=== PATIENT | male | born 1980 | race Caucasian/White ===

== ENCOUNTER 2016-06-30 02:47 | Emergency (ER) | payer SELFPAY ==
[~2016-06-30 02:47] MED LIST: FOLVITE-DPS1 MG PO; GABAPENTIN100 MG PO; MAGOX 400400 MG PO; MULTIVITAMINS1 EAC1 PO; PEPCID20 MG PO; VITAMIN B1100 MG PO
--- NOTE | 2016-06-30 06:48 | ER ---
ADMIT: 06/30/2016 RM/LOC: ER [facility] MR#: [id number] 2620 [facility] [address] GUICHO CHEN [address] [place] [address] Emergency Room Report SEX: M AGE: 35 : 1980 DATE: 06/30/2016 The patient is a 35-year-old male, alcoholic with alcoholic liver disease, pancytopenia due to alcoholism presents with dental bleeding after dental cleaning today. Admits to drinking his usual amount of beer and whiskey. Exam remarkable for nontoxic, afebrile, non-jaundice male, no acute distress, obvious gingival bleeding along 29 through 30 teeth and 3 through 5 teeth. Treated with Zofran 8 mg IV push; tranexamic acid 1 g IV piggyback; banana bag with thiamine, folic acid, and multivitamin; as well as magnesium and potassium. Lab remarkable for WBC 3.6, hemoglobin 9.3, platelet count 24,000, lactic 1.4, CRP less than 0.29, potassium 3.5, INR 1.23, AST 128, troponin less than 0.015, EtOH 371. Follow up with Dr. Best as needed. Mateo Pringle MD/ janeth JOB #: [id number] CC: Mateo Pringle MD, Attending Physician Joon Best MD
[2016-11-25] MEDS ORDERED: FOLVITE-DPS1 MG PO (14:59)
[2016-11-25] MEDS ORDERED: CALCIUM CARBON200 MG PO (14:59)
[2016-11-25] MEDS ORDERED: MAG-OX400 MG PO (15:00)
[2016-11-25] MEDS ORDERED: ATIVAN-DPS1 MG PO (15:01)
[2016-11-25] MEDS ORDERED: INDERAL-DPS10 MG PO (15:01)
[2016-11-25] MEDS ORDERED: VITAMIN B1100 MG PO (15:01)
[2016-11-25] MEDS ORDERED: PROTONIX40 MG PO (15:01)
[2016-11-25] MEDS ORDERED: [UNRECOGNIZED DRUG - CODE] PO (15:01)
[2016-11-25] MEDS ORDERED: KLOR-CON M2020 ME1 PO (15:02)
[2017-01-07] MEDS ORDERED: ENULOSE10 GM/15 M PO (18:16)
[2017-01-07] MEDS ORDERED: FEOSOL-DPS325 MG PO (18:16)
[2017-01-07] MEDS ORDERED: NALTREXONE HCL50 MG PO (18:17)
== END 2016-06-30 05:45 | disposition home or self-care (01) ==
LOC: ER 02:47
DX: K70.9 Alcoholic liver disease, unspecified (principal)

== ENCOUNTER 2016-07-21 04:22 | Emergency (ER) | payer SELFPAY ==
--- NOTE | 2016-07-26 18:25 | ER ---
ADMIT: 07/21/2016 RM/LOC: ER [facility] MR#: [id number] [address] [address] GUICHO CHEN [address] [place], [place] [address] Emergency Room Report SEX: M AGE: 35 : 1980 DATE: 07/21/2016 The patient is a 35-year-old male in police custody for trespassing, drunken, disorderly conduct. The patient is well known to this physician and institution, denies any problem other than happily intoxicated, released in police custody. Mateo Pringle MD/ modl JOB #: [id number] CC: Mateo Pringle MD, Attending Physician Sonido Ramirez MD, Family Physician Reji Lara MD
[2016-11-25] MEDS ORDERED: CALCIUM CARBON200 MG PO (14:59)
[2016-11-25] MEDS ORDERED: FOLVITE-DPS1 MG PO (14:59)
[2016-11-25] MEDS ORDERED: MAG-OX400 MG PO (15:00)
[2016-11-25] MEDS ORDERED: INDERAL-DPS10 MG PO (15:01)
[2016-11-25] MEDS ORDERED: ATIVAN-DPS1 MG PO (15:01)
[2016-11-25] MEDS ORDERED: PROTONIX40 MG PO (15:01)
[2016-11-25] MEDS ORDERED: [UNRECOGNIZED DRUG - CODE] PO (15:01)
[2016-11-25] MEDS ORDERED: VITAMIN B1100 MG PO (15:01)
[2016-11-25] MEDS ORDERED: KLOR-CON M2020 ME1 PO (15:02)
[2017-01-07] MEDS ORDERED: ENULOSE10 GM/15 M PO (18:16)
[2017-01-07] MEDS ORDERED: FEOSOL-DPS325 MG PO (18:16)
[2017-01-07] MEDS ORDERED: NALTREXONE HCL50 MG PO (18:17)
== END 2016-07-21 04:30 ==
LOC: ER 04:22
DX: F10.129 Alcohol abuse with intoxication, unspecified (principal)

== ENCOUNTER 2016-07-21 20:50 | Inpatient (IN) | payer SELFPAY ==
[~2016-07-21] VITALS: Ht 152.4 cm; Wt 70.5 kg
--- NOTE | 2016-07-26 17:54 | HP ---
ADMIT: 07/22/2016 RM/LOC: 425 [facility] MR#: [id number] [address] [address] GUICHO CHEN [address] [place], [place] [address] History and Physical SEX: M AGE: 35 : 1980 DATE OF SERVICE: CHIEF COMPLAINT: Abdominal pain and "shakiness" after no alcohol for greater than 24 hours. HISTORY OF PRESENT ILLNESS: Mr. Chen is a 35-year-old, male, who is well-known to our Emergency Department. He has a long history of alcohol abuse with numerous related problems outlined below. He was brought to the emergency room late last night by the police after he had been arrested the day prior for trespassing. He admitted to drinking an amount of alcohol on a daily basis, but is not able to quantify it. Since being in [facility], he had been given some Librium, but still was feeling quite shaky. He complained of headache, some diffuse abdominal pain and then reported to the ER that he has been having rectal bleeding with blood over the last month that seemed worse in the last few days. He has had a history of a significant GI bleed with esophageal varices in the past. In the emergency room, his hemoglobin was 8.2, platelets of 26, white count of 3500 and mild elevation of his liver function studies and mild hypokalemia. He was admitted for further evaluation and treatment with a police hold. PAST MEDICAL HISTORY: Obtained primarily from his old records. He has known alcoholic cirrhosis and portal hypertension. He has had esophageal varices, apparently previously treated. He has a history of cerebral hemorrhage in April 2014, history of splenic laceration with splenic embolization number of years ago, history of abnormal thyroid studies in the past, history of mild coagulopathy and mildly elevated ammonia levels in the past. MEDICATIONS: None. ALLERGIES: NONE. SOCIAL HISTORY: He is unemployed, single. States he does not use tobacco. He has been evaluated at a local drug and alcohol unit several times. Again, he cannot quantify his alcohol intake. FAMILY HISTORY: From old records, reveals his father apparently of alcoholism. He denies any diabetes or hypertension in the family. REVIEW OF SYSTEMS: Aside from his mild headache and abdominal distress, is negative x10 points. PHYSICAL EXAMINATION: GENERAL: He is alert, in no apparent distress, has good reasonable color. SKIN: Warm and dry. VITAL SIGNS: He has a temp of about 99-100 since admission, blood pressures in the 130 systolic range, pulse of about 100. HEENT: Essentially negative, but for poor dentition. NECK: Reasonably supple. No bruits. LUNGS: Clear to auscultation. ADMIT: 07/22/2016 RM/LOC: 425 [facility] MR#: [id number] [address] [address] GUICHO CHEN [address] [place] [address] History and Physical SEX: M AGE: 35 : 1980 CARDIAC: Shows regular without murmur. ABDOMEN: Protuberant, soft. He has mild epigastric tenderness. I do not detect any obvious hepatosplenomegaly. GENITAL/RECTAL: Not done. EXTREMITIES: Lower extremities show no edema. IMPRESSION: 1. Chronic alcoholism with withdrawal symptoms. 2. Alcoholic liver disease. 3. Known portal hypertension with a history of esophageal varices. 4. Pancytopenia (alcoholism and malnutrition). 5. History of cerebral hemorrhage in April 2014. 6. History of splenic laceration-status post splenic embolization. 7. History of abnormal thyroid function studies. 8. History of coagulopathy. 9. History of mildly elevated ammonia levels. 10.Poor dentition. PLAN: He has been admitted on our usual withdrawal pathway. He is begun on a police hold. We will follow him. We will monitor his hemoglobins. We will transfuse him if his hemoglobin drops much less than about 7.5. Further treatment will depend on his response to our initial therapies and his trended studies. Felipe Osman MD/ janeth JOB #: [id number] CC: Felipe Osman, Attending Physician Felipe Osman, Family Physician
--- NOTE | 2016-07-28 08:16 | DS ---
ADMIT: 07/22/2016 RM/LOC: 425 [facility] MR#: [id number] [address] [address] GUICHO CHEN [address] [place] [address] General Discharge Summary SEX: M AGE: 35 : 1980 ADMISSION DATE: 07/22/2016 DISCHARGE DATE: 07/22/2016 FINAL DIAGNOSES: 1. Chronic alcoholism with withdrawal symptoms. 2. Alcoholic liver disease. 3. Known portal hypertension with history of esophageal varices. 4. Pancytopenia secondary to alcoholism and malnutrition. 5. History of cerebral hemorrhage in April 2014. 6. History of splenic laceration - status post splenic embolization. 7. History of abnormal thyroid function studies. 8. History of coagulopathy. 9. History of mildly elevated ammonia levels. 10.Poor dentition. Felipe Osman MD/ janeth JOB #: [id number] CC: Felipe Osman MD, Attending Physician Felipe Osman MD, Family Physician
--- NOTE | 2016-08-01 07:17 | ER ---
ADMIT: 07/22/2016 RM/LOC: 425 [facility] MR#: [id number] [address] [address] GUICHO CHEN [address] [place] [address] Emergency Room Report SEX: M AGE: 35 : 1980 DATE: 07/21/2016 CHIEF COMPLAINT: Abdominal pain and rectal bleeding. HISTORY OF PRESENT ILLNESS: The patient is a 35-year-old male, who is well known to myself in the Emergency Department, who presents from [facility]. The patient has a long history of alcohol abuse and numerous chronic conditions related to his alcohol abuse including esophageal varices, pancytopenia, GI bleeds. He has also had numerous traumas related to his alcohol intoxication. He presents today after he was arrested and booked last night for trespassing. Up till last night, he had been drinking large amounts of alcohol on a daily basis. Since being in [facility], he has of course had no access to alcohol and has been given some Librium but feels like he feels quite shaky. He has some complaints of headache, some diffuse abdominal pain. Additionally, the patient states he has been having rectal bleeding with blood mixed with stool quite frequently over the past month and it seems like it has increased in the past couple of days. He has had history of significant GI bleeds in the past. REVIEW OF SYSTEMS: The patient denies any recent illness but did have reported fever tonight at [facility]. Denies any chest pain or shortness of breath. He is not having any pain with urination, any abnormal bruising or bleeding. PAST MEDICAL HISTORY: Significant for alcohol abuse, pancytopenia, GI bleed, esophageal varices, splenic rupture, intercerebral bleed, cirrhosis. PAST SURGICAL HISTORY: Splenic embolization, 2013. SOCIAL HISTORY: The patient is single and drinks large amounts of alcohol on a daily basis. Denies any illicit drugs. PHYSICAL EXAMINATION: See T-sheet for complete exam. Pertinent positives, he does have some scleral icterus. His abdomen is mildly diffusely tender. He does have some gross blood present on rectal exam. Skin is warm and dry. No abnormal ecchymosis or petechiae. LABORATORY DATA: White count is 3.9, hemoglobin of 8.2, platelets 24. AST is 178. Chemistries are unremarkable other than potassium of 3.6. Urinalysis shows 1+ protein and 1+ ketones. EMERGENCY DEPARTMENT COURSE: I did get an IV started on the patient and he ADMIT: 07/22/2016 RM/LOC: 425 [facility] MR#: [id number] [address] [address] GUICHO CHEN [address] [place] [address] Emergency Room Report SEX: M AGE: 35 : 1980 required three doses of 1 mg Ativan due to his symptoms of feeling jittery and shakes. He did improve after he was given each dose of Ativan. Due to the fact the patient is having some GI bleeding and has a significant likelihood of going into alcohol withdrawal, the [facility] was not comfortable having him under their care this evening. As the patient does not see a regular physician, I had to contact [facility] and Dr. Osman graciously admitted the patient to his service. He is admitted in stable condition at this time with a diagnosis of: 1. Lower GI bleed. 2. Pancytopenia. 3. Alcohol withdrawal. 4. Alcohol abuse. Josué Malhotra MD/ janeth JOB #: [id number] CC: Felipe Osman MD, Attending Physician Felipe Osman MD, Family Physician
[2016-11-25] MEDS ORDERED: FOLVITE-DPS1 MG PO (14:59)
[2016-11-25] MEDS ORDERED: CALCIUM CARBON200 MG PO (14:59)
[2016-11-25] MEDS ORDERED: MAG-OX400 MG PO (15:00)
[2016-11-25] MEDS ORDERED: [UNRECOGNIZED DRUG - CODE] PO (15:01)
[2016-11-25] MEDS ORDERED: PROTONIX40 MG PO (15:01)
[2016-11-25] MEDS ORDERED: INDERAL-DPS10 MG PO (15:01)
[2016-11-25] MEDS ORDERED: VITAMIN B1100 MG PO (15:01)
[2016-11-25] MEDS ORDERED: ATIVAN-DPS1 MG PO (15:01)
[2016-11-25] MEDS ORDERED: KLOR-CON M2020 ME1 PO (15:02)
[2017-01-07] MEDS ORDERED: ENULOSE10 GM/15 M PO (18:16)
[2017-01-07] MEDS ORDERED: FEOSOL-DPS325 MG PO (18:16)
[2017-01-07] MEDS ORDERED: NALTREXONE HCL50 MG PO (18:17)
== END 2016-07-22 12:45 | disposition left against medical advice (07) | DRG 894 ==
LOC: ER 20:50 → 4PCU 07-22 00:23
PROVIDERS: ADMIT Family Medicine
PROC: HZ2ZZZZ Detoxification Services for Substance Abuse Treatment (ICD-10-PCS; principal; 2016-07-22)
DX: F10.231 Alcohol dependence with withdrawal delirium (principal); D61.818 Other pancytopenia; I85.00 Esophageal varices without bleeding; K76.6 Portal hypertension; K92.1 Melena; K70.30 Alcoholic cirrhosis of liver without ascites; F41.9 Anxiety disorder, unspecified; Z81.1 Family history of alcohol abuse and dependence

== ENCOUNTER 2016-07-29 20:48 | Emergency (ER) | payer SELFPAY ==
--- NOTE | 2016-07-30 02:06 | ER ---
ADMIT: 07/29/2016 RM/LOC: ER [facility] MR#: [id number] [address] [address] GUICHO CHEN [address] [place] [address] Emergency Room Report SEX: M AGE: 35 : 1980 DATE: 07/29/2016 HISTORY OF PRESENT ILLNESS: The patient is a 35-year-old male with a history of alcohol abuse and heavy drinking, allegedly came to the ER with chief complaint of alcohol intoxication. The patient denies any trauma. Allegedly, the patient had epigastric pain which was already resolved when I saw him. The patient had no nausea or vomiting and no abdominal pain. The patient admitted to use alcohol and denied any trauma or fall or co-ingestion of other material/medications. The patient denies any drug use. PHYSICAL EXAMINATION: VITAL SIGNS: The patient has stable vitals. GENERAL: At first was drowsy but was arousable, alert and oriented to person, place, time. No obvious signs of trauma. HEENT: Pupils 3 mm, reactive to light bilaterally. No midline tenderness or stepoff in the neck. CHEST: Clear to auscultation. HEART: Normal heart sounds. ABDOMEN: Soft. EXTREMITIES: Nontender with normal range of motion. disposition The patient was observed and was re-examined. The patient became more oriented and more alert and ambulated without difficulty, tolerated p.o., re- examined, did not show any new symptoms. DISPOSITION: The patient is stable for discharge to home with followup with the primary care doctor as needed. Arnie Clements MD/ janeth JOB #: [id number] CC: Arnie Clements MD, Attending Physician
[2016-11-25] MEDS ORDERED: FOLVITE-DPS1 MG PO (14:59)
[2016-11-25] MEDS ORDERED: CALCIUM CARBON200 MG PO (14:59)
[2016-11-25] MEDS ORDERED: MAG-OX400 MG PO (15:00)
[2016-11-25] MEDS ORDERED: PROTONIX40 MG PO (15:01)
[2016-11-25] MEDS ORDERED: [UNRECOGNIZED DRUG - CODE] PO (15:01)
[2016-11-25] MEDS ORDERED: VITAMIN B1100 MG PO (15:01)
[2016-11-25] MEDS ORDERED: INDERAL-DPS10 MG PO (15:01)
[2016-11-25] MEDS ORDERED: ATIVAN-DPS1 MG PO (15:01)
[2016-11-25] MEDS ORDERED: KLOR-CON M2020 ME1 PO (15:02)
[2017-01-07] MEDS ORDERED: ENULOSE10 GM/15 M PO (18:16)
[2017-01-07] MEDS ORDERED: FEOSOL-DPS325 MG PO (18:16)
[2017-01-07] MEDS ORDERED: NALTREXONE HCL50 MG PO (18:17)
== END 2016-07-30 00:35 | disposition home or self-care (01) ==
LOC: ER 20:48
DX: F10.129 Alcohol abuse with intoxication, unspecified (principal); I10 Essential (primary) hypertension

== ENCOUNTER 2016-08-06 01:10 | Emergency (ER) | payer SELFPAY ==
--- NOTE | 2016-08-06 19:24 | ER ---
ADMIT: 08/06/2016 RM/LOC: ER [facility] MR#: [id number] [id number] [place], [place] [address] APRILGUICHO MONTES [address] [place] [address] Emergency Room Report SEX: M AGE: 35 : 1980 DATE: 08/06/2016 HISTORY OF PRESENT ILLNESS: The patient is a 35-year-old male, who is known to the ER with past medical history of EtOH abuse and allegedly GI bleed, came to the ER because of EtOH intoxication. The patient also complains of mild epigastric pain. The patient denies any trauma or fall or loss of consciousness. The patient states he just used beer and did not use any other forms of liquids, which could contain alcohol or similar products. The patient denied any drug abuse or taking any pills or medications. In the ER, the patient was quiet, EtOH smell. PHYSICAL EXAMINATION: GENERAL: In no obvious distress. There are no obvious signs of trauma. EYES: Pupils are 3 mm, reactive to light bilaterally. NEUROLOGICAL: Motor and sensory and cerebellar test and cranial exam are also normal. NECK: Trachea midline. CHEST: Clear bilaterally. HEART: Normal heart sounds. ABDOMEN: Soft abdomen. No signs of trauma. EXTREMITIES: With normal range of motion. The patient received GI cocktail. Abdominal pain resolved. The patient was observed, became more sober, was ambulating without difficulty and had no pain or complaints, tolerated p.o., discharged to home. Arnie Clements MD/ janeth JOB #: [id number] CC: Arnie Clements MD, Attending Physician
[2016-11-25] MEDS ORDERED: FOLVITE-DPS1 MG PO (14:59)
[2016-11-25] MEDS ORDERED: CALCIUM CARBON200 MG PO (14:59)
[2016-11-25] MEDS ORDERED: MAG-OX400 MG PO (15:00)
[2016-11-25] MEDS ORDERED: [UNRECOGNIZED DRUG - CODE] PO (15:01)
[2016-11-25] MEDS ORDERED: VITAMIN B1100 MG PO (15:01)
[2016-11-25] MEDS ORDERED: INDERAL-DPS10 MG PO (15:01)
[2016-11-25] MEDS ORDERED: PROTONIX40 MG PO (15:01)
[2016-11-25] MEDS ORDERED: ATIVAN-DPS1 MG PO (15:01)
[2016-11-25] MEDS ORDERED: KLOR-CON M2020 ME1 PO (15:02)
[2017-01-07] MEDS ORDERED: FEOSOL-DPS325 MG PO (18:16)
[2017-01-07] MEDS ORDERED: ENULOSE10 GM/15 M PO (18:16)
[2017-01-07] MEDS ORDERED: NALTREXONE HCL50 MG PO (18:17)
== END 2016-08-06 04:55 | disposition home or self-care (01) ==
LOC: ER 01:10
DX: F10.129 Alcohol abuse with intoxication, unspecified (principal)

== ENCOUNTER 2016-08-08 00:48 | Emergency (ER) | payer SELFPAY ==
--- NOTE | 2016-08-10 12:46 | ER ---
ADMIT: 08/08/2016 RM/LOC: ER [facility] MR#: [id number] [address] [address] GUICHO CHEN [address] [place] [address] Emergency Room Report SEX: M AGE: 35 : 1980 DATE: 08/08/2016 CHIEF COMPLAINT: Med clearance, alcohol intoxication. HISTORY OF PRESENT ILLNESS: This is a 35-year-old, male, who presents to the department of [facility] for med clearance prior to transport to the [facility]. The patient has been using alcohol tonight. He is unable to quantify how much he has been using. The patient states that he was having problems with his vision and some abdominal pain. Denies any fever, chills, nausea, or vomiting. Denies any issues with his alcohol intoxication. PAST MEDICAL HISTORY: Significant for alcohol abuse as well as CVA, GI bleed, and hepatitis. COURSE IN THE EMERGENCY ROOM: The patient was seen and examined. Vital signs were unable to review as the patient was refusing nursing to obtain any vital sign. However, he is nontoxic. He is jovial. He jokes and laughs in the room with the police. He is in no acute distress. He is alert. No apparent trauma. Pupils are equal and reactive. Extraocular muscles are intact. Pharynx is normal. Airway is intact. He is alert. Mood and affect are normal. Neck is supple. Respiratory, no respiratory distress. Breath sounds are normal. No wheezes or rhonchi. CVS is significant for some tachycardia. No murmurs, gallops, or rubs. Abdomen is soft and nontender. However, he does state that he has generalized tenderness about his entire abdomen. Skin is warm, dry, and intact. Extremities are nontender. He moves upper and lower extremities. No evidence of any pedal edema. IMPRESSION: 1. Alcohol abuse with acute intoxication. 2. History of alcoholic hepatitis. DISPOSITION: The patient was discharged into the care of [place] [employer] for transport to halfway. I have no suggestion for care of this prisoner, and I believe him fit for admission to halfway. MILAGROS Parikh / Arnie Clements MD / modl JOB #: [id number] CC: Arnie Clements MD, Attending Physician
[2016-11-25] MEDS ORDERED: CALCIUM CARBON200 MG PO (14:59)
[2016-11-25] MEDS ORDERED: FOLVITE-DPS1 MG PO (14:59)
[2016-11-25] MEDS ORDERED: MAG-OX400 MG PO (15:00)
[2016-11-25] MEDS ORDERED: ATIVAN-DPS1 MG PO (15:01)
[2016-11-25] MEDS ORDERED: VITAMIN B1100 MG PO (15:01)
[2016-11-25] MEDS ORDERED: PROTONIX40 MG PO (15:01)
[2016-11-25] MEDS ORDERED: [UNRECOGNIZED DRUG - CODE] PO (15:01)
[2016-11-25] MEDS ORDERED: INDERAL-DPS10 MG PO (15:01)
[2016-11-25] MEDS ORDERED: KLOR-CON M2020 ME1 PO (15:02)
[2017-01-07] MEDS ORDERED: FEOSOL-DPS325 MG PO (18:16)
[2017-01-07] MEDS ORDERED: ENULOSE10 GM/15 M PO (18:16)
[2017-01-07] MEDS ORDERED: NALTREXONE HCL50 MG PO (18:17)
== END 2016-08-08 02:30 | disposition home or self-care (01) ==
LOC: ER 00:48
DX: F10.129 Alcohol abuse with intoxication, unspecified (principal); H53.149 Visual discomfort, unspecified; F10.21 Alcohol dependence, in remission; Z09 Encounter for follow-up examination after completed treatment for conditions other than malignant neoplasm; Z86.19 Personal history of other infectious and parasitic diseases

== ENCOUNTER 2017-01-04 16:06 | Inpatient (IN) | payer OTHER ==
[~2017-01-04] VITALS: Ht 152.4 cm; Wt 55.3 kg
[~2017-01-04 16:06] MED LIST changes: +ATIVAN-DPS1 MG PO; +CALCIUM CARBON200 MG PO; +INDERAL-DPS10 MG PO; +KLOR-CON M2020 ME1 PO; +MAG-OX400 MG PO; +PROTONIX40 MG PO; +[UNRECOGNIZED DRUG - CODE] PO
--- NOTE | 2017-01-06 16:10 | HP ---
ADMIT: 01/04/2017 RM/LOC: 312 [facility] MR#: [id number] [address] [address] NAS LYN [address] [place] [address] History and Physical SEX: M AGE: 36 : 1980 DATE OF SERVICE: 01/04/2017 CURRENT TIME: 7:42 p.m. CHIEF COMPLAINT: "Don't feel good." HISTORY OF PRESENT ILLNESS: Nas Lyn is a 36-year-old male who presented to the emergency room at the direction of his [facility]p strategy for hyponatremia. He is well known to our facility, and has extensive medical history most notable for chronic alcohol abuse, cirrhosis with esophageal varices, and a recent esophageal varix bleed, s/p banding, portal hypertension and pancytopenia. He was recently admitted to [facility] from 12/11/2016 to 12/15/2016.At that time, he had an esophageal varix bleed and underwent banding x2 during that hospitalization. He required 2 units of PRBCs. He was discharged from the hospital on 40 mg of Lasix and 100 mg of Aldactone for management of his ascites. He did receive 7 days of treatment for STP prophylaxis. No known hepatic encephalopathy was apparent. He was discharged with lactulose titrated to 3 to 4 bowel movements day. He presented this week for a followup and saw his evp strategy, Dr. Carlos on 01/01/2017 for routine followup where he was noted have a blood alcohol content of 233 and sodium was noted to be 117. He was advised to report to the emergency room for direct admission here in [place], but the patient did not arrive for a follow up until today. On presentation, he is intoxicated with a blood alcohol content 277. He states he "does not feel well." He is unable to provide specifics. Denies nausea or vomiting. No recent melena or hematochezia. No recent hematemesis. Reports compliance of his medications including Lasix and Aldactone. Also continues to take lactulose. Denies abdominal pain. States he is currently drinking approximately 1 to 2 [place] beers daily. States he has significantly cut back the amount of alcohol he drinks but has not been able to quit. States he desires sobriety. PAST MEDICAL HISTORY: 1. Chronic alcohol abuse. 2. Cirrhosis secondary to alcohol abuse. 3. Esophageal varices, s/p banding in November 2016 x2. 4. Chronic ascites. 5. History of cerebral hemorrhage in April 2014. 6. History of splenic laceration, s/p splenic embolization. 7. Abnormal TSH. 8. Pancytopenia secondary to alcohol abuse. 9. Coagulopathy. 10.Poor dentition. MEDICATIONS: 1. Lorazepam 1 mg three times daily as needed. 2. Calcium carbonate 500 mg twice daily. 3. Potassium chloride ER 20 mEq three times daily. 4. Thiamine 100 mg daily. 5. Magnesium oxide 400 mg every day. ADMIT: 01/04/2017 RM/LOC: 312 [facility] MR#: [id number] [address] [address] NAS LYN [facility] [place] [address] History and Physical SEX: M AGE: 36 : 1980 6. Folic acid 1 mg every day. 7. Multivitamin every day. 8. Lactulose 10 g/15 mL, 30 mL four times daily. 9. Ferrous sulfate 325 mg daily. 10.Furosemide 40 mg daily. 11.Naltrexone 50 mg daily. 12.Pantoprazole 40 mg twice daily. 13.Propranolol 10 mg twice daily. 14.Spironolactone 100 mg daily. 15.Xifaxan 550 mg twice daily. ALLERGIES: NO KNOWN DRUG ALLERGIES. SOCIAL HISTORY: Single, currently living with a friend, Yumiko, who also serves as a caregiver. Currently drinking approximately one to two [employer] [place] beers daily per his report. Desires sobriety. Denies illicit drug use. FAMILY MEDICAL HISTORY: Father of alcohol-related causes per chart review. REVIEW OF SYSTEMS: A 10-point review of systems was negative except for as mentioned in the HPI. PHYSICAL EXAMINATION: VITAL SIGNS: Temperature 98 degrees F, P 71, RR 13, BP 96/58, and SpO2 of 95% on room air. GENERAL: Intoxicated. Alert and oriented x3. In no acute distress. Slurring words. HEENT: PERRLA. EOMI. Mucous membranes dry. RESPIRATORY: Clear to auscultation bilaterally, comfortable on room air. CARDIOVASCULAR: Regular rate and rhythm. No murmurs, rubs, or gallops. ABDOMEN: Soft, mildly distended, nontender to palpation. Positive fluid wave. Positive bowel sounds. EXTREMITIES: No lower extremity edema. Strength 5/5 to bilateral upper and lower extremities. SKIN: Dry skin diffusely. No rashes or open lesions. NEUROLOGIC: Cranial nerves II through XII grossly intact. No focal deficits appreciated. Sensation intact. LABS: Sodium 117, potassium 3.6, chloride 90, CO2 of 14, BUN 13, creatinine 1.3, magnesium 1.8, phosphorus 2.4, alcohol 277. AST 324, ALT 72, alkaline phosphatase 618, total bilirubin 19.6, GGT 622, lipase 429. WBC 5.5, hemoglobin 9, platelets 42, MCV 86.3. TSH 2.88, free T4 of 1.37, INR 1.46, lactic acid 1.7. ASSESSMENT: 1. Hyponatremia, likely secondary to diuretics causing volume depletion. 2. Alcohol abuse. ADMIT: 01/04/2017 RM/LOC: 312 [facility] MR#: [id number] [address] [address] NAS LYN [address] [place] [address] History and Physical SEX: M AGE: 36 : 1980 3. Esophageal varices, status post banding, November 2016. 4. Chronic Pancytopenia. 5. Cirrhosis secondary to alcohol abuse. 6. Jpqzx-bf-vtkektk alcoholic hepatitis. 7. Hypokalemia. PLAN: 1. Hyponatremia: This is most likely due to volume depletion and diuretic use. He reports compliance with his diuretics and has lost approximately 40 pounds since 12/08/2016 when he weighed 145 pounds. He now weighs 126 pounds, presumably from fluid loss. We will hold his diuretics and give small doses of normal saline with sodium checks every 4 hours. 2. Alcohol abuse: We will keep him on CIWA protocol and telemetry, but will withhold Ativan for the time being as he is currently intoxicated. We will keep on seizure precautions. 3. Cirrhosis with esophageal varices: We will continue his proton pump inhibitor given his recent esophageal varix banding. 4. Pancytopenia: We will monitor pancytopenia daily. 5. Alcoholic hepatitis: Although his MELD is 31, he continues to drink alcohol and is therefore not a liver transplant candidate. In regard to his odhff-ln-orwqjmd alcoholic hepatitis, although his Maddrey DF score is approximately 37, he has chronic alcoholic hepatitis rather than acute and is therefore a poor candidate for steroids at this time. 6. Hypokalemia: We will replete potassium as needed throughout his hospitalization. 7. Headache: Likely due to hyponatremia. We will provide low-dose Tylenol as needed for headache providing for caution given his cirrhosis. DISPOSITION: Pending clinical improvement. Anticipate discharge once hyponatremia is corrected and the patient is near baseline status. CODE STATUS: Full code. ACTIVITY: With assist. DIET: General. Vipin Deluna DO Resident / Krishna Mendez MD / modl JOB #: [id number] CC: Krishna Mendez, Attending Physician FAMILY PHYSICIAN, Family Physician
[2017-01-07] MEDS ORDERED: ENULOSE10 GM/15 M PO (18:16)
[2017-01-07] MEDS ORDERED: FEOSOL-DPS325 MG PO (18:16)
[2017-01-07] MEDS ORDERED: NALTREXONE HCL50 MG PO (18:17)
--- NOTE | 2017-01-08 08:12 | DS ---
ADMIT: 01/04/2017 RM/LOC: 312 [facility] MR#: [id number] [id number] [place], [place] [address] GUICHO CHEN [address] [place] [address] Discharge Summary SEX: M AGE: 36 : 1980 ADMISSION DATE: 01/04/2017 DISCHARGE DATE: 01/06/2017 CONSULTATIONS: None. PROCEDURES: None. FINAL DIAGNOSES: 1. Severe hyponatremia. 2. Acute kidney injury. 3. End-stage liver disease. REASON FOR ADMISSION: The patient is a 36-year-old gentleman with chronic liver issues who was noted to be severely hyponatremic on outside labs. We discussed with him. He was feeling more weak and tired and ultimately was agreeable for hospitalization. HOSPITAL COURSE: The patient was admitted. Very gently and mildly rehydrated. Seemed hypovolemic on exam. His diuretics were held. He tolerated it well with his sodium improving to 131 at time of discharge. [place] much improved. Tolerating a diet prior to discharge. [place] safe and stable for discharge to home. Will follow up closely in clinic within the next week with repeat labs at that time. DISCHARGE INSTRUCTIONS: Please see discharge MAR, which I fully reviewed. Notably, he will be off his diuretic and potassium for the time being and we will repeat his lab at follow up with close followup at the clinic. Less than 25 minutes on day of discharge spent on discharge day activities. Krishna Mendez MD/ vdg JOB #: [id number] CC: Krishna Mendez MD, Attending Physician FAMILY PHYSICIAN, Family Physician
== END 2017-01-06 11:24 | disposition home or self-care (01) | DRG 641 ==
LOC: 3ICU 16:06
PROVIDERS: ADMIT Internal Medicine
PROC: HZ2ZZZZ Detoxification Services for Substance Abuse Treatment (ICD-10-PCS; principal; 2017-01-04)
DX: E87.1 Hypo-osmolality and hyponatremia (principal); E86.1 Hypovolemia; D61.818 Other pancytopenia; N17.9 Acute kidney failure, unspecified; D68.9 Coagulation defect, unspecified; K76.6 Portal hypertension; I85.10 Secondary esophageal varices without bleeding; Z23 Encounter for immunization; Y90.8 Blood alcohol level of 240 mg/100 ml or more; K70.31 Alcoholic cirrhosis of liver with ascites; F10.129 Alcohol abuse with intoxication, unspecified; K70.11 Alcoholic hepatitis with ascites; E87.6 Hypokalemia; E83.42 Hypomagnesemia; D64.9 Anemia, unspecified